=== PATIENT | female | born 1955 | race Caucasian/White ===

== ENCOUNTER 2018-08-22 14:13 | Observation (INO) | payer BC ==
[2018-08-22 15:06] LABS: CHLORIDE,CL 98 mEq/L (98-106); SODIUM,NA 141 mEq/L (136-145)
[2018-08-22] MEDS ORDERED: Acetaminophen 325 MG Tab PO PRN (16:43)
[2018-08-22] MEDS ORDERED: ALPRAZolam 0.25 MG Tab PO PRN (16:47)
[2018-08-22] MEDS ORDERED: cefTRIAXone 1 GM Vial IVPUSH SCH (17:00)
[2018-08-22] MEDS ORDERED: Sodium Chloride 0.9% 1,000 ML IV ONE (17:04)
[2018-08-22] MEDS: Ondansetron 4 MG/2 ML SDV IV PRN (17:15)
[2018-08-22] MEDS: Sodium Chloride 0.9% 1,000 ML IV SCH (18:16)
[2018-08-22] MEDS: Enoxaparin 30 MG/0.3 ML Syringe SUBCUT SCH (19:25)
[2018-08-23] MEDS: Sodium Chloride 0.9% 1,000 ML IV SCH ×4 (02:08→19:45)
[2018-08-23] MEDS ORDERED: Sodium Chloride 0.9% 1,000 ML IV ONE (09:15)
[2018-08-23] MEDS: Cyclobenzaprine 10 MG Tab PO SCH ×2 (10:18→19:48)
[2018-08-23] MEDS: **PTOM** Levothyroxine 50 MCG Tab PO SCH (10:18)
[2018-08-23] MEDS: Zolpidem 5 MG Tab PO SCH ×2 (10:18→19:48)
--- NOTE | 2018-08-23 13:11 | PCM.PN ---
- General Info Date of Service: 08/23/18 Admission Dx/Problem (Free Text): Acute Kidney Injury Dehydration Nausea/Vomiting Functional Status: Reports: Pain Controlled, Tolerating Diet, Ambulating - Review of Systems General: Reports: Weakness, Fatigue HEENT: Reports: No Symptoms Pulmonary: Denies: Shortness of Breath, Cough Cardiovascular: Denies: Chest Pain, Edema, Lightheadedness Gastrointestinal: Reports: Abdominal Pain (abdomen is "sore"). Denies: Nausea, Vomiting Genitourinary: Reports: No Symptoms Musculoskeletal: Reports: No Symptoms Skin: Reports: No Symptoms Neurological: Reports: Weakness - Patient Data Vitals - Most Recent: Last Vital Signs Temp 96.9 F 08/23/18 11:53 Pulse 59 L 08/23/18 11:53 Resp 16 08/23/18 11:53 BP 75/45 L 08/23/18 11:53 Pulse Ox 96 08/23/18 11:53 Weight - Most Recent: 166 lb 3.2 oz I&O - Last 24 Hours: Intake & Output 08/22/18 08/23/18 08/23/18 22:59 06:59 14:59 Intake Total 983 1136 Balance 983 1136 Lab Results Last 24 Hours: Laboratory Results - last 24 hr 08/22/18 08/22/18 08/22/18 Range/Units 14:24 14:24 14:24 WBC 13.2 H (5.0-10.0) 10^3/uL RBC 4.19 (4.00-5.50) 10^6/uL Hgb 12.9 (12.0-16.0) g/dL Hct 40.2 (37.0-47.0) % MCV 95.9 H (82.0-94.0) fL MCH 30.8 (27.0-32.0) pg MCHC 32.1 L (33.0-38.0) g/dL RDW Coeff of [place] 12.6 (11.0-15.0) % Plt Count 323 (150-400) 10^3/uL Neut % (Auto) 72.8 (35-85) % Lymph % (Auto) 18.3 (10-55) % [place] % (Auto) 7.0 (0-16) % Eos % (Auto) 1.4 (0-5) % Baso % (Auto) 0.5 (0-3) % Neut # (Auto) 9.61 H (1.80-7.00) 10^3/uL Lymph # (Auto) 2.41 (1.00-4.80) 10^3/uL [place] # (Auto) 0.93 H (0.00-0.80) 10^3/uL Eos # (Auto) 0.18 (0.00-0.45) 10^3/uL Baso # (Auto) 0.07 10^3/uL Sodium 141 (136-145) mEq/L Potassium 4.6 (3.5-5.0) mEq/L Chloride 98 (98-106) mEq/L Carbon Dioxide 32 (21-32) mmol/L BUN 55 H D (7-18) mg/dL Creatinine 2.5 H D (0.6-1.0) mg/dL Est Cr Clr Drug Dosing TNP Estimated GFR (MDRD) 20 L (>=60) mL/min Glucose 113 H (75-99) mg/dL Calcium 9.4 (8.4-10.1) mg/dL Total Bilirubin 0.3 (0.0-1.0) mg/dL AST 14 L (15-37) U/L ALT 20 (12-78) U/L Alkaline Phosphatase 72 (46-116) U/L C-Reactive Protein 6.3 H (0.2-0.8) mg/dL Total Protein 8.0 (6.4-8.2) g/dL Albumin 3.8 (3.4-5.0) g/dL Urine Color [place] (YELLOW) Urine Appearance Clear (CLEAR) Urine pH 5.0 (4.5-8.0) Ur Specific [place] 1.010 (1.003-1.020) Urine Protein 30 H (NEGATIVE) mg/dL Urine Glucose (UA) 250 H (NEGATIVE) mg/dL Urine Ketones Trace H (NEGATIVE) mg/dL Urine Occult Blood Negative (NEGATIVE) Urine Nitrite Positive H (NEGATIVE) Urine Bilirubin Negative (NEGATIVE) Urine Urobilinogen 2.0 H (0.2-1.0) EU/dL Ur Leukocyte Esterase Negative (NEGATIVE) Urine RBC 0-5 (0-5) /HPF Urine WBC 0-5 (0-5) /HPF Ur Squamous Epith Cells Occasional H (NOT SEEN) /HPF Urine Bacteria Few H (NOT SEEN) /HPF Urinalysis Comment 08/23/18 08/23/18 Range/Units 07:41 07:41 WBC 8.0 (5.0-10.0) 10^3/uL RBC 3.22 L (4.00-5.50) 10^6/uL Hgb 9.8 L (12.0-16.0) g/dL Hct 31.7 L (37.0-47.0) % MCV 98.4 H (82.0-94.0) fL MCH 30.4 (27.0-32.0) pg MCHC 30.9 L (33.0-38.0) g/dL RDW Coeff of [place] 12.5 (11.0-15.0) % Plt Count 237 (150-400) 10^3/uL Neut % (Auto) 44.3 (35-85) % Lymph % (Auto) 43.8 (10-55) % [place] % (Auto) 8.2 (0-16) % Eos % (Auto) 2.9 (0-5) % Baso % (Auto) 0.8 (0-3) % Neut # (Auto) 3.54 (1.80-7.00) 10^3/uL Lymph # (Auto) 3.49 (1.00-4.80) 10^3/uL [place] # (Auto) 0.65 (0.00-0.80) 10^3/uL Eos # (Auto) 0.23 (0.00-0.45) 10^3/uL Baso # (Auto) 0.06 10^3/uL Sodium 144 (136-145) mEq/L Potassium 4.2 (3.5-5.0) mEq/L Chloride 108 H (98-106) mEq/L Carbon Dioxide 28 (21-32) mmol/L BUN 36 H (7-18) mg/dL Creatinine 1.6 H (0.6-1.0) mg/dL Est Cr Clr Drug Dosing 30.54 Estimated GFR (MDRD) 33 L (>=60) mL/min Glucose 97 (75-99) mg/dL Calcium 7.7 L (8.4-10.1) mg/dL Total Bilirubin (0.0-1.0) mg/dL AST (15-37) U/L ALT (12-78) U/L Alkaline Phosphatase (46-116) U/L C-Reactive Protein 3.6 H (0.2-0.8) mg/dL Total Protein (6.4-8.2) g/dL Albumin (3.4-5.0) g/dL Urine Color (YELLOW) Urine Appearance (CLEAR) Urine pH (4.5-8.0) Ur Specific [place] (1.003-1.020) Urine Protein (NEGATIVE) mg/dL Urine Glucose (UA) (NEGATIVE) mg/dL Urine Ketones (NEGATIVE) mg/dL Urine Occult Blood (NEGATIVE) Urine Nitrite (NEGATIVE) Urine Bilirubin (NEGATIVE) Urine Urobilinogen (0.2-1.0) EU/dL Ur Leukocyte Esterase (NEGATIVE) Urine RBC (0-5) /HPF Urine WBC (0-5) /HPF Ur Squamous Epith Cells (NOT SEEN) /HPF Urine Bacteria (NOT SEEN) /HPF Urinalysis Comment Med Orders - Current: Current Medications Acetaminophen (Tylenol) 650 mg PO Q4H PRN PRN Reason: Pain (Mild 1-3)/fever Alprazolam (Xanax) 0.25 mg PO QID PRN PRN Reason: Anxiety Ceftriaxone Sodium (Rocephin) 1 gm IVPUSH 1600 [facility] Last Admin: 08/22/18 17:15 Dose: 1 gm Cyclobenzaprine HCl (Flexeril) 10 mg PO BEDTIME [facility] Last Admin: 08/23/18 10:18 Dose: Not Given Enoxaparin Sodium (Lovenox) 30 mg SUBCUT Q24H [facility] Last Admin: 08/22/18 19:25 Dose: 30 mg Sodium Chloride (Normal Saline) 1,000 mls @ 125 mls/hr IV ASDIRECTED [facility] Last Admin: 08/23/18 11:21 Dose: 125 mls/hr Levothyroxine Sodium (Synthroid) 50 mcg PO DAILY [facility] Last Admin: 08/23/18 10:18 Dose: 50 mcg Ondansetron HCl (Zofran) 4 mg IV Q6H PRN PRN Reason: Nausea/Vomiting Last Admin: 08/22/18 17:15 Dose: 4 mg Zolpidem Tartrate (Ambien) 10 mg PO BEDTIME [facility] Last Admin: 08/23/18 10:18 Dose: Not Given Discontinued Medications Sodium Chloride (Normal Saline) 1,000 mls @ 999 mls/hr IV .BOLUS ONE Stop: 08/22/18 18:04 Last Admin: 08/22/18 17:15 Dose: 999 mls/hr Sodium Chloride (Normal Saline) 1,000 mls @ 500 mls/hr IV .BOLUS ONE Stop: 08/23/18 11:14 Last Admin: 08/23/18 10:11 Dose: Not Given - Exam General: Alert, Oriented HEENT: Mucous Membr. Moist/[place] Neck: Supple Lungs: Clear to Auscultation, Normal Respiratory Effort Cardiovascular: Regular Rate, Regular Rhythm GI/Abdominal Exam: Normal Bowel Sounds, Soft, Non-Tender Extremities: Normal Inspection, No Pedal Edema Skin: Warm, Dry Neurological: No New Focal Deficit - Problem List & Annotations (1) Acute kidney injury SNOMED Code(s): 04839581 Code(s): N17.9 - ACUTE KIDNEY FAILURE, UNSPECIFIED Status: Acute Priority : High Current Visit: Yes (2) Dehydration SNOMED Code(s): 73780047 Code(s): E86.0 - DEHYDRATION Status: Acute Priority: High Current Visit : Yes (3) Hypotension SNOMED Code(s): 55222194 Code(s): I95.9 - HYPOTENSION, UNSPECIFIED Status: Acute Current Visit: Yes - Problem List Review Problem List Initiated/Reviewed/Updated: Yes - Assessment Assessment:: Acute Kidney Injury Dehydration N/V Hypotension - Plan Plan:: Patient admits to feeling better today. Afebrile. No further vomiting. Does feel very weak yet. Relates has been battling illness now for 3 weeks since being in [place] and hasn't yet recovered from the initial sinusitis at that time. Blood pressures have been low today. Have given IV one liter fluid bolus as a result with minimal change. Is asymptomatic, denies lightheadedness , shortness of breath or pain. Labs are improved. WBC returned to normal at 8.0. Hemoglobin has dropped to 9.8. No BM since admission. Creatinine is improved to 1.6. CRP improved to 3.6. Will continue with IV fluids. Monitor blood pressure closely. Repeat labs in am.
[2018-08-23] MEDS ORDERED: cefTRIAXone 1 GM Vial IVPUSH SCH (16:00)
[2018-08-23] MEDS: Enoxaparin 30 MG/0.3 ML Syringe SUBCUT SCH (19:48)
[2018-08-24] MEDS: Ondansetron 4 MG/2 ML SDV IV PRN ×2 (00:48→08:03)
[2018-08-24] MEDS: Sodium Chloride 0.9% 1,000 ML IV SCH (03:51)
[2018-08-24] MEDS: **PTOM** Levothyroxine 50 MCG Tab PO SCH (07:50)
--- NOTE | 2018-08-24 13:18 | PCM.DCSUM1 ---
Discharge Summary - Hospital Course Free Text/Narrative:: Patient presented to clinic to see Aditi for nausea/vomiting and dizziness. She was in the hospital in [place] at the beginning of August and was diagnosed with a sinusitis. Was given antibiotics and then was discharged to return home. She relates she really hasn't felt well since then. At that time here WBC was around 23,000. Did not feel well returning home on the plane. Was able to return back to work although continued to feel week. Over the 3 days prior to admission, patient experiencing dizziness and nausea. Had been vomiting large amounts after any oral intake. No diarrhea. No fevers. Has been taking her meds and blood pressure noted to be low in the clinic. Labs ordered. WBC 13.2. CRP 6. Creatinine 2.6, dehydrated. Admitted and started on IV fluids. Diagnosis: Stroke: No Modified Lindsay Scale: No Symptoms at All Modified Gabby Scale Score: 0 - Discharge Data Discharge Date: 08/24/18 Discharge Disposition: Home, Self-Care 01 Condition: Good - Discharge Diagnosis/Problem(s) (1) Acute kidney injury SNOMED Code(s): 33244843 ICD Code: N17.9 - ACUTE KIDNEY FAILURE, UNSPECIFIED Status: Acute Priority: High (2) Dehydration SNOMED Code(s): 59452424 ICD Code: E86.0 - DEHYDRATION Status: Acute Priority: High (3) Hypotension SNOMED Code(s): 61347854 ICD Code: I95.9 - HYPOTENSION, UNSPECIFIED Status: Acute - Patient Summary/Data Complications: none Hospital Course: Patient much improved today. Was still lethargic yesterday, seemed "out of it" per . Did do CT scan of head and sinus which were negative but today feels back to her normal self. Yesterday, blood pressure was quite low. Had given a liter of IV fluid bolus in addition to usual rate for this. Labs have improved. WBC normal at 8. Creatinine improved to 1.6. CRP down to 3. She is up and to the bathroom and feels more steady today. Blood pressure meds have been on hold, readings 103/54 and 107/50. Will return home. Rest and continue to push fluids. Advance diet as tolerated. - Patient Instructions Diet: Usual Diet as Tolerated Activity: As Tolerated - Discharge Plan *PRESCRIPTION DRUG MONITORING PROGRAM REVIEWED*: No *COPY OF PRESCRIPTION DRUG MONITORING REPORT IN PATIENT SIMON: No Home Medications: Home Meds Ascorbate Calcium/Bioflavonoid [Mara-C 500 MG] 1 each PO TID 01/30/14 [History] Cholecalciferol (Vitamin D3) [Vitamin D3] 2,000 unit PO DAILY 01/30/14 [History] Estrogens, Conjugated [Premarin Vaginal Crm] 2 gm VAG DAILY 01/30/14 [History] Hydrocodone/Acetaminophen [Hydrocodone-Acetaminophen 5-325] 1 - 2 tab PO Q6H PRN 01/30/14 [History] Ibuprofen 800 mg PO DAILY PRN 01/30/14 [History] Levothyroxine Sodium [Synthroid] 50 mcg PO DAILY 01/30/14 [History] Lidocaine 5% [Lidoderm 5%] 1 applic TRDERM DAILY PRN 01/30/14 [History] SUMAtriptan [Imitrex] 50 mg PO Q2HR PRN 01/30/14 [History] Zolpidem [Ambien] 10 mg PO BEDTIME 01/30/14 [History] ALPRAZolam [Xanax] 0.25 mg PO QID PRN 08/22/18 [History] Aspirin [Adult Aspirin] 81 mg PO DAILY 08/22/18 [History] Calcium Carb/Magnesium Cmb #10 [Arya-Mag] 1 each PO DAILY 08/22/18 [History] Cyanocobalamin (Vitamin B-12) [Vitamin B-12] 1,000 mcg PO DAILY 08/22/18 [ History] Cyclobenzaprine [Flexeril] 10 mg PO BEDTIME 08/22/18 [History] Estradiol [Estrace] 2 mg PO DAILY 08/22/18 [History] Fluconazole [Diflucan] 100 mg PO DAILY PRN 08/22/18 [History] Ondansetron [Zofran ODT] 4 mg PO Q6H PRN 08/22/18 [History] Turmeric Root Extract [Turmeric Curcumin] 500 mg PO DAILY 08/22/18 [History] Referrals: Lyn Wilkerson PA [Primary Care Provider] - (Follow up with Cindy on September 05 in [place].) - Discharge Summary/Plan Comment DC Time >30 min.: No Discharge Summary/Plan Comment: Discharge home Will continue to hold blood pressure meds until follow up appointment - General Info Date of Service: 08/24/18 Admission Dx/Problem (Free Text: Acute Kidney Injury Dehydration Nausea/Vomiting Functional Status: Reports: Pain Controlled, Tolerating Diet - Review of Systems General: Reports: Weakness, Fatigue. Denies: Fever HEENT: Reports: Rhinitis. Denies: Headaches, Sinus Congestion Pulmonary: Denies: Shortness of Breath, Cough, Wheezing Cardiovascular: Denies: Chest Pain, Edema, Lightheadedness Gastrointestinal: Denies: Abdominal Pain, Nausea, Vomiting Genitourinary: Reports: No Symptoms Musculoskeletal: Reports: No Symptoms Skin: Reports: No Symptoms Neurological: Denies: Headache, Weakness - Patient Data Vitals - Most Recent: Last Vital Signs Temp 98.2 F 08/24/18 08:00 Pulse 52 L 08/24/18 08:00 Resp 16 08/24/18 08:00 BP 112/57 L 08/24/18 08:00 Pulse Ox 100 08/24/18 08:00 Weight - Most Recent: 166 lb 3.2 oz I&O - Last 24 hours: Intake & Output 08/23/18 08/24/18 08/24/18 22:59 06:59 14:59 Intake Total 1000 1000 Balance 1000 1000 Med Orders - Current: Current Medications Discontinued Medications Acetaminophen (Tylenol) 650 mg PO Q4H PRN PRN Reason: Pain (Mild 1-3)/fever Last Admin: 08/24/18 08:06 Dose: 650 mg Alprazolam (Xanax) 0.25 mg PO QID PRN PRN Reason: Anxiety Ceftriaxone Sodium (Rocephin) 1 gm IVPUSH 1600 [facility] Last Admin: 08/22/18 17:15 Dose: 1 gm Ceftriaxone Sodium (Rocephin) 1 gm IVPUSH Q24H [facility] Last Admin: 08/23/18 16:44 Dose: 1 gm Cyclobenzaprine HCl (Flexeril) 10 mg PO BEDTIME [facility] Last Admin: 08/23/18 19:48 Dose: Not Given Enoxaparin Sodium (Lovenox) 30 mg SUBCUT Q24H [facility] Last Admin: 08/23/18 19:48 Dose: 30 mg Sodium Chloride (Normal Saline) 1,000 mls @ 125 mls/hr IV ASDIRECTED [facility] Last Admin: 08/24/18 03:51 Dose: 125 mls/hr Sodium Chloride (Normal Saline) 1,000 mls @ 999 mls/hr IV .BOLUS ONE Stop: 08/22/18 18:04 Last Admin: 08/22/18 17:15 Dose: 999 mls/hr Sodium Chloride (Normal Saline) 1,000 mls @ 500 mls/hr IV .BOLUS ONE Stop: 08/23/18 11:14 Last Admin: 08/23/18 10:11 Dose: Not Given Levothyroxine Sodium (Synthroid) 50 mcg PO DAILY [facility] Last Admin: 08/24/18 07:50 Dose: 50 mcg Ondansetron HCl (Zofran) 4 mg IV Q6H PRN PRN Reason: Nausea/Vomiting Last Admin: 08/24/18 08:03 Dose: 4 mg Zolpidem Tartrate (Ambien) 10 mg PO BEDTIME [facility] Last Admin: 08/23/18 19:48 Dose: Not Given - Exam General: Reports: Alert, Oriented HEENT: Reports: Mucous Membr. Moist/[place] Neck: Reports: Supple Lungs: Reports: Clear to Auscultation, Normal Respiratory Effort Cardiovascular: Reports: Regular Rate, Regular Rhythm GI/Abdominal Exam: Normal Bowel Sounds, Soft, Non-Tender Extremities: Normal Inspection, No Pedal Edema Skin: Reports: Warm, Dry Neurological: Reports: No New Focal Deficit
== END 2018-08-24 11:00 | disposition home or self-care (01) ==
LOC: CC.FCMC 14:13 → CC.MS 14:13 → UNDOADMOB 15:24 → CC.MS 16:43
PROVIDERS: ADMIT Nurse Practitioner Family; ATTEND Family Medicine
DX: R11.2 Nausea with vomiting, unspecified (principal); E86.0 Dehydration; N17.9 Acute kidney failure, unspecified; I95.9 Hypotension, unspecified; D72.829 Elevated white blood cell count, unspecified; N39.0 Urinary tract infection, site not specified; Z79.82 Long term (current) use of aspirin; Z79.899 Other long term (current) drug therapy
CPT/HCPCS: 36415; 70450; 70486; 80048; 80053; 81001; 85025; 86140; 96361; 96372; 96374; 96375; 96376; A9270; G0378; J0696; J1650; J2405; J7030; 87086

== ENCOUNTER 2024-01-19 11:52 | Day surgery (SDC) | payer MEDICARE, OTHER ==
[2024-01-19] MEDS ORDERED: Ketamine 200 MG/20 ML MDV ONE (12:05)
[2024-01-19] MEDS ORDERED: fentaNYL 50 MCG/ML SDV ONE (12:05)
[2024-01-19] MEDS ORDERED: Midazolam 1 MG/ML 2 ML SDV ONE (12:05)
[2024-01-19] MEDS ORDERED: Propofol 200 MG/20 ML SDV ONE ×2 (12:05)
[2024-01-19] MEDS: Lactated Ringers 1,000 ML IV SCH (12:50)
== END 2024-01-19 14:20 | disposition home or self-care (01) ==
LOC: CC.SDS 11:52
PROVIDERS: ATTEND Family Medicine
DX: Z12.11 Encounter for screening for malignant neoplasm of colon (principal)
CPT/HCPCS: 00812; G0121; J2250; J2704; J3010; J7120; J3490